=== PATIENT | female | born 1995 | race Caucasian/White ===

== ENCOUNTER → 2017-01-15 | Outpatient (CLI) | payer OTHER ==
--- NOTE | 2017-01-15 10:48 | DIAGNOSTIC IMAGING REPORT ---
LEFT SHOULDER MIN 2 VIEWS HISTORY: 21 years-old Female LEFT SHOULDER PAIN S/P INJURY. History of recent subluxation. COMPARISON: Left shoulder radiographs 02/23/2015 TECHNIQUE: 3 views of the left shoulder. FINDINGS: There is a subtle remote appearing Hill Sachs deformity. There is no acute fracture, dislocation or significant degenerative changes. No radiopaque foreign body. Imaged lung iqbal appear clear. IMPRESSION: 1. No acute bony abnormality. 2. Subtle remote appearing Hill-Sachs deformity. The above report was generated using voice recognition software. It may contain grammatical, syntax or spelling errors. Electronically signed by: Dong Reardon M.D. 01/15/2017 10:47 AM Dictated Date/Time: 01/15/2017 10:45 AM
== END | disposition home or self-care (01) ==
LOC: C.RDSM 13:30
PROVIDERS: ATTEND Internal Medicine
DX: M25.512 Pain in left shoulder (principal)

== ENCOUNTER → 2017-03-21 | Outpatient (CLI) | payer OTHER ==
--- NOTE | 2017-03-21 11:19 | DIAGNOSTIC IMAGING REPORT ---
RIGHT WRIST 4 VIEWS HISTORY: RIGHT WRIST PAIN COMPARISON: None. FINDINGS: There is no fracture or dislocation. Soft tissues are unremarkable. No radiopaque foreign bodies. The scaphoid is intact. IMPRESSION: No fractures. Electronically signed by: Haider Kaba M.D. 03/21/2017 11:18 AM Dictated Date/Time: 03/21/2017 11:16 AM
== END | disposition home or self-care (01) ==
LOC: C.RDSM 13:56
PROVIDERS: ATTEND Internal Medicine
DX: M25.531 Pain in right wrist (principal)

== ENCOUNTER → 2017-07-10 | Outpatient (CLI) | payer OTHER ==
--- NOTE | 2017-07-10 11:30 | DIAGNOSTIC IMAGING REPORT ---
R ANKLE MIN 3 VIEWS CLINICAL HISTORY: 21 years-old Female presenting with RIGHT ANKLE PAIN. TECHNIQUE: Frontal, mortise, and lateral views of the right ankle were obtained. COMPARISON: None. FINDINGS: Ankle mortise intact. Tiny ossific fragment at the inferior pole of the lateral malleolus. No other evidence of acute fracture or malalignment. No degenerative change. Regional soft tissues within normal limits. IMPRESSION: Tiny ossific fragment at the inferior pole of the lateral malleolus could suggest avulsion injury. Electronically signed by: Troy Maldonado M.D. 07/10/2017 11:29 AM Dictated Date/Time: 07/10/2017 11:28 AM
== END | disposition home or self-care (01) ==
LOC: C.RDSM 11:12
PROVIDERS: ATTEND Internal Medicine
DX: M25.571 Pain in right ankle and joints of right foot (principal)